=== PATIENT | male | born 1970 ===

== ENCOUNTER 2017-12-20 07:26 | Day surgery (SDC) | payer BC ==
[2017-12-12 11:47] VITALS: BMI 29.2
[2017-12-20] MEDS ORDERED: Propofol 10 mg/ml Inj (20 ML) ONE ×2 (09:09→09:33)
[2017-12-20] MEDS ORDERED: Lidocaine 2% Inj (20ml) ONE (09:09)
[2017-12-20] MEDS ORDERED: Sodium Chloride 0.9% 1,000 ML IV SCH (10:00)
[2017-12-20 10:49] VITALS: BP 108/71; PULSE 55; RESP 18; TEMP 97.5; O2SAT 100
== END 2017-12-20 11:41 | disposition home or self-care (01) ==
LOC: ENDO 07:26
PROVIDERS: ATTEND Internal Medicine
DX: K57.30 Diverticulosis of large intestine without perforation or abscess without bleeding (principal); K64.8 Other hemorrhoids; F17.210 Nicotine dependence, cigarettes, uncomplicated; K59.00 Constipation, unspecified
CPT/HCPCS: 45378; J2704; J7040 ×2

== ENCOUNTER 2018-05-02 08:10 | Day surgery (SDC) | payer BC ==
[2018-04-27 08:27] VITALS: BMI 31.0
[2018-05-02] MEDS ORDERED: Propofol 10 mg/ml Inj (20 ML) ONE (09:41)
[2018-05-02] MEDS ORDERED: Sodium Chloride 0.9% 1,000 ML IV SCH (10:00)
[2018-05-02 10:52] VITALS: BP 112/68; PULSE 51; RESP 15; TEMP 97.8; O2SAT 95
== END 2018-05-02 11:45 | disposition home or self-care (01) ==
LOC: ENDO 08:10
PROVIDERS: ATTEND Internal Medicine
DX: K20.9 Esophagitis, unspecified (principal); K31.7 Polyp of stomach and duodenum; K29.50 Unspecified chronic gastritis without bleeding; K31.89 Other diseases of stomach and duodenum
CPT/HCPCS: 43239; 88305; 88342; J2704; J7030; J7040